=== PATIENT | female | born 1980 | race Caucasian/White ===

== ENCOUNTER → 2018-01-21 | Outpatient (CLI) | payer OTHER ==
[~2018-01-21] MED LIST: ADVAIR HFA120 INHAL1 IH; ADVAIR HFA120 INHALA IH; FLUOXETINE HCL20 MG PO; HYDROCODON-ACE1 EAC7 PO; METOPROLOL SUCC50 MG PO; MONTELUKAST SOD10 MG PO; NASONEX17 GM BOTH NARES; QUASENSE1 EACH PO
== END | disposition home or self-care (01) ==
LOC: RES 12:58
DX: R06.02 Shortness of breath (principal); R06.2 Wheezing; R07.89 Other chest pain
CPT/HCPCS: 94070